=== PATIENT | female | born 1990 | race Caucasian/White ===

== ENCOUNTER 2023-11-26 19:30 | Inpatient (IN) | payer BC ==
[2023-11-26 23:28] VITALS: BMI 28.8
[2023-11-27] MEDS ORDERED: fentaNYL 50 mcg/mL 1 mL Vial SLOW IVP PRN (00:33)
[2023-11-27] MEDS ORDERED: Tranexamic Acid 1,000 MG/10 ML VIAL IVP PRN (00:33)
[2023-11-27 00:42] LABS: Hematocrit 38.1 % (34.9-44.5); Hemoglobin 13.2 g/dL (12.0-15.5); Mean Corpuscular HGB CONC 34.6 g/dL (32.0-36.0); Mean Corpuscular Hemoglobin 31.2 pg (27.0-33.0); Mean Corpuscular Volume 90.1 fL (81.6-98.3); Mean Platelet Volume 11.8 fL (7.4-10.4); Platelet Count 155 10x3/uL (150-450); RBC Distribution Width 14.1 % (11.5-14.5); Red Blood Cell (RBC) Count 4.23 10x6/uL (3.90-5.03); White Blood Cell (WBC) Count 9.9 10x3/uL (3.5-10.5)
[2023-11-27] MEDS ORDERED: Diphenoxylate HCl/Atropine Tablet PO PRN (00:45)
[2023-11-27] MEDS ORDERED: Carboprost 250 MCG/ML AMP IM PRN (00:45)
[2023-11-27] MEDS ORDERED: hydrALAZINE 20 MG/ML VIAL SLOW IVP PRN ×2 (00:45→16:37)
[2023-11-27] MEDS ORDERED: Oxytocin 30 units/NS 500 ML 500 ML IVPB SCH (00:45)
[2023-11-27] MEDS ORDERED: Methylergonovine 0.2 MG/ML VIAL IM PRN (00:45)
[2023-11-27] MEDS ORDERED: Promethazine HCl 25 MG/ML VIAL IM PRN ×2 (00:45→06:07)
[2023-11-27] MEDS ORDERED: Lidocaine 1% (PF) 30 ML VIAL SC PRN (00:45)
[2023-11-27] MEDS ORDERED: Lactated Ringer's 1,000 ML IV SCH (00:45)
[2023-11-27] MEDS: Misoprostol 100 MCG TAB VAG SCH (00:47)
[2023-11-27 01:41] LABS: HBsAg Index 0.19 S/CO (0-0.99); Hep B Surf Ag - L&D Non-Reactive S/CO (NonReactive)
[2023-11-27 01:42] LABS: Syphilis Antibody Nonreactive (Nonreactive); Syphilis Antibody Index 0.04 S/CO (<1.00 Non-Reactive)
[2023-11-27] MEDS: fentaNYL/Ropivacaine Epidural 100 ML ONE (05:38)
[2023-11-27] MEDS ORDERED: Bupivacaine/Epinephrine 0.25% 30 ML VIAL ONE (06:00)
[2023-11-27] MEDS ORDERED: Ondansetron PF 4 MG/2 ML Vial IVP PRN (06:07)
[2023-11-27] MEDS ORDERED: Acetaminophen 325 MG TAB PO PRN (06:07)
[2023-11-27] MEDS ORDERED: Moisturizing Cream (Eucerin) 113 GM JAR TOP PRN (06:07)
[2023-11-27] MEDS ORDERED: diphenhydrAMINE 50 MG/ML VIAL IVP PRN (06:07)
[2023-11-27] MEDS ORDERED: ePHEDrine Sulfate 50 MG/10 ML VIAL SLOW IVP PRN (06:07)
[2023-11-27] MEDS ORDERED: Lactated Ringer's 500 ML IV PRN (06:07)
[2023-11-27] MEDS ORDERED: Naloxone HCl 0.4 mg/ml Vial IVP PRN ×2 (06:07)
[2023-11-27] MEDS ORDERED: Communication Order-Pharmacy FS SCH (06:15)
[2023-11-27] MEDS: Ondansetron PF 4 MG/2 ML Vial IVP PRN (08:24)
[2023-11-27] MEDS: Oxytocin 30 units/NS 500 ML 500 ML IV SCH (08:47)
[2023-11-27] MEDS: Famotidine/PF 20 mg/2ml Vial SLOW IVP SCH (09:35)
[2023-11-27] MEDS: fentaNYL 2 mcg/Ropivacaine 0.2% Epidural 100 ML CADD EPIDURAL SCH (14:42)
[2023-11-27] MEDS: Misoprostol 200 MCG TAB RC PRN (16:27)
[2023-11-27] MEDS ORDERED: diphenhydrAMINE 25 MG CAP PO PRN (16:37)
[2023-11-27] MEDS ORDERED: Bisacodyl 10 MG SUPP PR PRN (16:37)
[2023-11-27] MEDS ORDERED: Lanolin Ointment 7 GM TUBE TOP PRN (16:37)
[2023-11-27] MEDS ORDERED: Preparation H Ointment 28 GM TUBE PR PRN (16:37)
[2023-11-27] MEDS ORDERED: Milk Of Magnesia 30 ML UDCUP PO PRN (16:37)
[2023-11-27] MEDS: Ibuprofen 800 MG TAB PO PRN (18:51)
[2023-11-27] MEDS: Dexmedetomidine 200 MCG/2 ML VIAL ONE (19:49)
[2023-11-27] MEDS: Docusate 100 MG CAP PO SCH (21:42)
[2023-11-27] MEDS: Ferrous Sulfate 325 MG TAB PO SCH (22:26)
[2023-11-27] MEDS: Benzocaine-Menthol 82.5 ML CAN TOP PRN (23:38)
[2023-11-28] MEDS: Ibuprofen 800 MG TAB PO SCH (01:30)
[2023-11-28] MEDS ORDERED: Ibuprofen 800 MG TAB PO SCH (02:00)
[2023-11-28] MEDS ORDERED: traMADol HCl 50 MG TAB PO PRN (06:07)
[2023-11-28] MEDS: Boostrix 0.5 ML (Tdap) VIAL (>/=7 yrs of age) IM ONE (07:05)
[2023-11-28] MEDS: Ferrous Sulfate 325 MG TAB PO SCH (07:06)
[2023-11-28] MEDS: Prenatal Vitamin 1 TAB PO SCH (07:59)
[2023-11-28] MEDS: traMADol HCl 50 MG TAB PO PRN (08:22)
[2023-11-29 13:32] VITALS: BP 113/72; TEMP 98.2
== END 2023-11-29 14:50 | disposition home or self-care (01) | DRG 807 ==
LOC: UNDOADMIN 19:59 → CSHLD 19:59 → UNDODISIN 11-27 10:18 → CSHPP 11-27 19:30 → CSHLD 11-27 19:30
PROVIDERS: ADMIT Obstetrics & Gynecology; ATTEND Obstetrics & Gynecology
PROC: 10E0XZZ Delivery of Products of Conception, External Approach (ICD-10-PCS; principal; 2023-11-27)
PROC: 0KQM0ZZ Repair Perineum Muscle, Open Approach (ICD-10-PCS; 2023-11-27)
DX: O70.1 Second degree perineal laceration during delivery (principal); Z37.0 Single live birth; Z3A.39 39 weeks gestation of pregnancy
CPT/HCPCS: 36415; 85027; 86780; 86850; 86900; 86901; 87340; J2405; J2590; S0028